=== PATIENT | male | born 1975 | race American Indian/Alaskan Native ===

== ENCOUNTER 2024-06-29 12:40 | Inpatient (IN) | payer BC, SELFPAY ==
[2024-06-29] VITALS (17 sets, daily range): BP systolic 99–139; BP diastolic 70–105; PULSE 90–158; RESP 15–20; TEMP 36.3–36.9; O2SAT 92–100; BMI 24.7
--- NOTE | 2024-06-29 12:51 | EKG_ITS ---
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
--- NOTE | 2024-06-29 12:54 | XR_ITS ---
Examination: AP chest single view Technique one AP portable semiupright chest single view Exam date and time: June 29, 2024 1316 hrs. Indications: Chest pain cardiac palpitations and shortness of breath today Findings: Normal heart size. Lungs are clear. Mild osteopenia Impression: No pneumonia or pulmonary edema
--- NOTE | 2024-06-29 12:55 | EDNOTE_ITS ---
ED SOB =RME/HPI General Chief Complaint: Shortness of Breath/Dyspnea Stated Complaint: SOB FOR A COUPLE OF MINUTES Time Seen by Provider: 06/29/24 12:48 Arrival date/time: 06/29/24 12:40 RME / HPI RME / HPI Narrative: 49-year-old male patient with no significant medical history, came in for evaluation regarding palpitation. Patient noticed about few minutes prior to ER visit sudden onset of shortness of breath, palpitation, and felt like her heart beat is irregular. Severity of symptoms moderate. Shortness of breath lasted for at least 10 minutes. However palpitation and irregular heartbeat is still persistent. Severity mild. Patient denies any dizziness denies any headache denies any abdominal pain denies any chest pain. No medication was taken prior to arrival. Patient told me that last night he ate marijuana edible to help him with sleep. Related Data Previous Rx's ?Medication ?Instructions ?Recorded Promethazine Hcl (Phenergan) 1 tab PO Q4-6HRPRN PRN NAUSEA OR 07/03/13 VOMITING #15 tabs Allergies Allergy/AdvReac Type Severity Reaction Status Date / Time Penicillins Allergy Verified 06/29/24 12:42 Review of Systems Review of Systems Narrative Review of Systems: Review of system reviewed and within normal limits except mentioned in HPI ED Exam Narrative Physical exam: VITAL SIGNS: Reviewed. GENERAL APPEARANCE: Alert and interactive, follows commands, no acute distress, HEAD AND FACE: Non-traumatic. ENT: PERRL, pink conjunctivitis, eyelid no trauma, Mucous membrane moist. NECK: Supple, nontender, no nuchal rigidity. CHEST: No tenderness, no crepitus, no paradoxical movement, no retractions. LUNGS: Clear, well ventilated, symmetric, no rales, no wheezing, no ronchi, no stridor, good breath sounds bilaterally. HEART: Tachycardia, no murmur, no gallops. ABDOMEN: Soft, positive bowel sounds, nondistended, no guarding, nontender, no rebound, no masses, RECTAL: Deferred. GENITAL: Deferred. NEUROLOGICAL: Gross motor function intact sensory function intact, Appropriate for age. MUSCULOSKELETAL: low back nontender, full range of motion. EXTREMITIES: Nontender, full range of motion. SKIN: Color pink, dry, no rash, no lacerations, no abrasions, no contusions. LYMPHATICS: Deferred. Course Quality Measures none Orders Category Date Time Status COVID-19 Screening Questionnaire NOW Care 06/29/24 14:12 Active Decision to Admit X1 Care 06/29/24 14:11 Active EKG (ED ONLY) *Do not use* NOW Care 06/29/24 12:51 Completed EKG (ED ONLY) *Do not use* NOW Care 06/29/24 14:12 Active Consult to Cardiology Stat Cons 06/29/24 13:45 Ordered EKG (ED Only) Stat Exams 06/29/24 12:51 Draft EKG (ED Only) Stat Exams 06/29/24 14:12 Ordered XR chest 1V Stat Exams 06/29/24 12:54 Taken B-Type Natriuretic Peptide Stat Lab 06/29/24 13:00 Completed CBC Stat Lab 06/29/24 13:00 Completed Comprehensive Metabolic Panel Stat Lab 06/29/24 13:00 Completed Drug Screen,Urine Stat Lab 06/29/24 14:00 Received Free T4 (Free Thyroxine) Stat Lab 06/29/24 13:00 Completed Magnesium Stat Lab 06/29/24 13:00 Completed Partial Thromboplastin Time Stat Lab 06/29/24 13:00 Completed Prothrombin Time with INR Stat Lab 06/29/24 13:00 Completed TSH [Thyroid Stimulating Hormone] Stat Lab 06/29/24 13:00 Completed Troponin I Stat Lab 06/29/24 13:00 Completed Urinalysis, C/S if Indicated Stat Lab 06/29/24 13:47 Received Amiodarone 150 mg Ivpb [Nexterone Ivpb] Med 06/29/24 13:15 Discontinued 150 mg in 100 ml IV 600 mls/hr Amiodarone 360 mg Ivpb [Nexterone Ivpb] Med 06/29/24 13:34 Active 360 mg in 200 ml IV 33.333 mls/hr Diltiazem Inj [Cardizem Inj] Med 06/29/24 13:44 Discontinued 20 mg IV X1 ONE Sodium Chloride 0.9% 1000 ml [Ns] 1,000 ml Med 06/29/24 13:15 Discontinued IV 999 mls/hr Vital Signs Vital signs: Vital Signs Temperature 98.1 F 06/29/24 12:52 Pulse Rate 142 H 06/29/24 12:52 Respiratory Rate 20 06/29/24 12:52 Blood Pressure 129/76 06/29/24 12:52 Pulse Oximetry (%) 98 06/29/24 12:52 Oxygen Delivery Method Room Air 06/29/24 12:52 Shortness of Breath / Dyspnea MDM Narrative MDM Narrative:: 49-year-old male patient with no significant medical history, came in for evaluation regarding palpitation. Patient noticed about few minutes prior to ER visit sudden onset of shortness of breath, palpitation, and felt like her heart beat is irregular. Severity of symptoms moderate. Shortness of breath lasted for at least 10 minutes. However palpitation and irregular heartbeat is still persistent. Severity mild. Patient denies any dizziness denies any headache de nies any abdominal pain denies any chest pain. No medication was taken prior to arrival. Patient told me that last night he ate marijuana edible to help him with sleep. Initial EKG showed A-fib with RVR, ventricular rate of 164 bpm. Patient was started on amiodarone IV bolus and on amiodarone drip. I consulted Dr. Garcia, superintendent warehouse, who recommends Cardizem 20 mg IV. Currently patient is having a heart rate of 93 bpm. Denies any complaints now. Repeat EKG showed A-fib, ventricular rate of [address] segment elevation or depression noted. Patient's cardiac workup all came back unremarkable. Patient will be admitted for further management. Patient data External records reviewed:: None Clinical information provided by:: patient Social determinants that could affect healthcare access:: none Patient has the following chronic illnesses:: None How is presenting disease/condition affected by chronic disease/condition?: no chronic disease Evaluation data The following diagnostics were reviewed and interpreted by me:: lab results, radiology exam(s) and EKG tracing(s) Lab and/or radiology exams considered but not ordered:: 1 Interpretation Summary: Patient's workup including cardiac workup, came back unremarkable except for EKG of A-fib with RVR ventricular rate of 164 bpm, no ST segment elevation depression noted. I personally reviewed and interpreted the x-ray of this patient. There is no acute abnormalities found, no infiltrates no pneumothorax no hemothorax normal chest x-ray. Review of other structures was without significant abnormal findings also. I additionally reviewed the radiologist report and agree with the interpretation. Medications / Prescriptions Medications or Prescriptions considered but not ordered:: None Medication administrations:: Medication Administration History Amiodarone HCl/Dextrose (Nexterone Ivpb) 360 mg in 200 mls @ 33.333 mls/hr IV .Q6H ONE Stop: 06/29/24 19:33 Last Admin: 06/29/24 13:36 Dose: 33.333 mls/hr Documented By: VANNA Discontinued Medications Diltiazem HCl (Diltiazem Inj 5 Mg/Ml Vial 5 Ml) 20 mg IV X1 ONE Stop: 06/29/24 13:45 Last Admin: 06/29/24 13:49 Dose: 20 mg Documented By: VANNA Amiodarone HCl/Dextrose (Nexterone Ivpb) 150 mg in 100 mls @ 600 mls/hr IV .Q10M ONE Stop: 06/29/24 13:24 Last Infusion: 06/29/24 13:40 Dose: Infused Documented By: Admin: 06/29/24 13:20 Dose: 600 mls/hr Documented By: VANNA Sodium Chloride (Ns) 1,000 mls @ 999 mls/hr IV .Q1H1M ONE Stop: 06/29/24 14:15 Last Admin: 06/29/24 13:24 Dose: 999 mls/hr Documented By: VANNA Amiodarone IV bolus and amiodarone drip. Patient was also given IV fluids for hydration and Cardizem 20 mg IV Consultations Consultation(s) initiated? (list below): Yes Consultation #1 (Physician, Specialty, Details): Consulted Dr. Garcia, superintendent warehouse, who recommends admission for further management. Diagnosis Shortness of Breath Differential Diagnosis: congestive heart failure and other (New onset A-fib with RVR, palpitation anxiety) Most likely diagnosis given after review of the tests above:: New onset A-fib with RVR Admission Indicated Admission indicated?: indicated Explain why admission is indicated or not indicated:: Patient is to be admitted for further management Admission Request Was there a request for admission?: Yes Admission Attestation Admission request attestation: Discussed case with [Dr. Gutierrez resident] from Hospitalist service regarding admission. Discussed patients ED course, exam findings, labs, and radiology results. The Hospitalist [agrees] to accept the patient for admission. Disposition Plan Disposition Plan: Admit Discharge Plan Prescriptions/Referrals Prescriptions/Med Rec: No Action Promethazine Hcl (Phenergan) 25 MG tablet 1 tab PO Q4-6HRPRN PRN (Reason: NAUSEA OR VOMITING) Qty: 15 0RF Patient/Caregiver Discharge Instructions Print Language: Chadian
[2024-06-29 13:07] LABS: Basophils # (Auto) 0.1 Thou/mm3 (0.0-0.2); Basophils % (Auto) 1 % (0-2.5); Eosinophils # (Auto) 0.1 Thou/mm3 (0.0-0.5); Eosinophils % (Auto) 2 % (0-10); Hematocrit 46.2 % (41.0-53.0); Hemoglobin 15.9 g/dL (13.5-16.0); Immature Granulocytes % (Auto) 0 % (0-0); Immature Granulocytes Auto 0.01 Thou/mm3 (0.00-0.00); Lymphocytes # (Auto) 3.3 Thou/mm3 (1.0-4.8); Lymphocytes % (Auto) 45 % (10-50); Mean Corpuscular HGB Conc 34.4 g/dl (31.0-37.0); Mean Corpuscular Hemoglobin 28.8 pg (25.0-35.0); Mean Corpuscular Volume 84 fL (80-100); Monocytes # (Auto) 0.7 Thou/mm3 (0.0-0.8); Monocytes % (Auto) 9 % (0-12); Neutrophils # (Auto) 3.2 Thou/mm3 (1.8-7.7); Neutrophils % (Auto) 43 % (37-80); Nucleated Red Blood Cell % 0 /100 WBC (0); Platelet Count 270 Thou/mm3 (140-440); RDW Standard Deviation 38.8 fL (35.1-43.9); Red Blood Count 5.53 Miln/mm3 (4.50-5.90); White Blood Count 7.4 Thou/mm3 (3.8-10.6)
[2024-06-29] MEDS: AMIODARONE 150 MG IVPB 150 MG/100 ML BAG 600 MG IV (13:20)
[2024-06-29 13:23] LABS: INR 1.1 (0.9-1.3); Partial Thromboplastin Time 31.5 Seconds (22.0-36.0); Prothrombin Time 11.9 Seconds (9.0-12.2)
[2024-06-29] MEDS: SODIUM CHLORIDE 0.9% 1000 ML 1,000 ML 999 ML IV (13:24)
[2024-06-29 13:25] LABS: B-Type Natriuretic Peptide < 20 pg/mL (0-100)
[2024-06-29 13:29] LABS: Alanine Aminotransferase 24 U/L (10-49); Albumin, Serum 4.4 gm/dL (3.5-5.0); Albumin/Globulin Ratio 1.8 (1.2-2.2); Alkaline Phosphatase 122 U/L (46-116); Anion Gap 6 (7-16); Aspartate Amino Transferase 29 U/L (0-34); BUN/Creatinine Ratio 19 Ratio (12-20); Bilirubin,Total 0.7 mg/dL (0.3-1.2); Blood Urea Nitrogen 17 mg/dL (9-23); Calcium 9.4 mg/dL (8.3-10.6); Calcium (Corrected) 9.4 mg/dL (8.5-10.1); Carbon Dioxide 27.9 mMol/L (20.0-31.0); Chloride 104 mMol/L (98-107); Creatinine (Component) 0.9 mg/dL (0.6-1.3); Estimated Creatinine Clearance 88.3 mL/min (>60); Free T4 (Free Thyroxine) 1.12 ng/dL (0.89-1.76); Globulin 2.5 gm/dL (2.3-3.5); Glucose 103 mg/dL (74-106); Magnesium 2.1 mg/dL (1.6-2.6); Osmolality,Calculated 277 (275-295); Potassium 4.4 mMol/L (3.4-5.1); Sodium 138 mMol/L (136-145); Thyroid Stimulating Hormone 0.57 uIU/mL (0.55-4.78); Total Protein 6.9 gm/dL (5.7-8.2); Troponin I < 0.020 ng/mL (0.0-0.045); eGFR > 60 See Note
[2024-06-29] MEDS: AMIODARONE 360 MG IVPB 360 MG/200 ML BAG 33.333 MG IV (13:36)
--- NOTE | 2024-06-29 13:45 | PC.NURSE ---
in to assess pt. pt from home with c/o palpitations, sob, and dizziness. per pt symptoms started 30 minutes prior to arrival, no longer short of breath or dizzy at this time. HR noted to be in the 150's-170's. provider in to assess. orders received and initiated. call light placed within reach. plan of care ongoing.
[2024-06-29] MEDS: DILTIAZEM INJ 5 MG/ML VIAL 5 ML 20 MG IV (13:49)
[2024-06-29 14:01] LABS: Collection Type, Urine Clean Catch; Squamous Epithelial Cell,Urine 0 /hpf (0-5)
--- NOTE | 2024-06-29 14:12 | EKG_ITS ---
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
[2024-06-29 14:19] LABS: Bilirubin,Urine Negative (Negative); Blood,Urine Negative (Negative); Clarity,Urine Clear (Clear/Hazy); Color,Urine Yellow (Lt Yel-Yel); Culture Indicated,Urine Not Indicated; Glucose, Urine Negative (Negative); Ketones,Urine Negative (Negative); Leukocyte Esterase,Urine Negative (Negative); Nitrite,Urine Negative (Negative); Protein,Urine Negative (Neg - Trace); RBC,Urine 2 /hpf (0-3); Specific Gravity,Urine 1.028 (1.001-1.035); Urobilinogen,Urine Negative mg/dL (0.0-1.0); WBC,Urine 1 /hpf (0-5)
[2024-06-29 14:34] LABS: Amphetamine/Methamp Scrn,U Negative (Negative); Barbiturate Screen,Urine Negative (Negative); Benzodiazepines Screen,Urine Negative (Negative); Benzoylecgonine Screen, Ur Negative (Negative); Fentanyl Screen,Urine Negative (Negative); Opiate Screen,Urine Negative (Negative); THC Screen,Urine Positive (Negative)
--- NOTE | 2024-06-29 15:00 | ESHP_ITS ---
Documentation for date of: 06/29/24 HPI History of Present Illness History of present illness: Gamaliel is a 49-year-old male with no past medical history who presents with sudden onset shortness of breath, palpitations, dizziness. Patient states that about 11 AM this morning he started to experience the symptoms and came to the ER immediately. He also reports a few episodes over the last few months of chest pain/palpitations that resolved within a few seconds. he denies any recent stress or changes in his life. He reports having marijuana edible last night to help him sleep. He has been using these for the last 3 years. He reports that he saw his PCP recently and that all of his labs look good. He is an active mehul and his work requires him to move and walk constantly. 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 Otherwise he has no other complaints. In the ED patient presented heart rate in the 150s 160s otherwise normal vitals. EKG showed A-fib with RVR. Labs were all within normal limits, TSH, mag, troponin, BNP all normal. Patient was placed on amiodarone drip. Dr. Garcia, wildlife control agent was was consulted and recommended Cardizem IV and admit for further workup. Pending UDS, A1c, echo Allergies: Penicillin, rash Family history: None Past surgical history: None Past medical history: None Social history: [place], alcohol occasionally last drink was a month ago, reports drank more heavily when he was younger, denies tobacco use, reports marijuana use but no other drug use Meds: None Review of Systems Review of Systems Systems Reviewed: All systems reviewed, normal except as documented Constitutional Constitutional: Denies fever(s) ENT Ears, Nose, Mouth, and Throat: Reports dizziness Cardiovascular Comments: Palpitations Gastrointestinal Gastrointestinal: Denies abdominal pain, Denies nausea and Denies vomiting Neurologic Neurologic: Reports dizziness Exam Vital Signs Temp Pulse Resp BP Pulse Ox O2 Del Method 98 F 97 19 101/80 95 Room Air 06/29/24 14:00 06/29/24 14:00 06/29/24 14:00 06/29/24 14:00 06/29/24 14:00 06/29/24 14:00 Narrative Exam General: Well appearing, well nourished, in no distress HEENT: Normocephalic, atraumatic, conjunctiva clear, sclera non-icteric, EOM intact Heart: Tachycardic and irregular rhythm, no murmur or gallop Lungs: Clear to auscultation, no wheezing Abdomen: Soft, nondistended none tender Extremities: No amputations or deformities, cyanosis, edema or varicosities, peripheral pulses intact Neurologic: Moves all extremity spontaneously, A and O x 3 Psychiatric: Cooperative, normal mood and affect. Results: Labs 06/30/24 04:45 06/30/24 04:45 Labs: Short CBC 06/29/24 Range/Units 13:00 WBC 7.4 (3.8-10.6) Thou/mm3 Hgb 15.9 (13.5-16.0) g/dL Hct 46.2 (41.0-53.0) % Plt Count 270 (140-440) Thou/mm3 BMP 06/29/24 13:00 Sodium 138 Potassium 4.4 Chloride 104 Carbon Dioxide 27.9 BUN 17 Creatinine 0.9 Glucose 103 Calcium 9.4 Cardiac Enzymes 06/29/24 Range/Units 13:00 Troponin I < 0.020 (0.0-0.045) ng/mL Liver Function 06/29/24 Range/Units 13:00 Total Bilirubin 0.7 (0.3-1.2) mg/dL AST 29 (0-34) U/L ALT 24 (10-49) U/L Alkaline Phosphatase 122 H (46-116) U/L Albumin 4.4 (3.5-5.0) gm/dL Urine 06/29/24 Range/Units 13:47 Urine Color Yellow (Lt Yel-Yel) Urine Clarity Clear (Clear/Hazy) Urine pH 6.0 (5.0-7.0) Ur Specific [place] 1.028 (1.001-1.035) Urine Protein Negative (Neg - Trace) Urine Glucose (UA) Negative (Negative) Quality Measures Quality Measures VTE prophylaxis Medications Home Medications and Allergies Home Medications ?Medication ?Instructions ?Recorded ?Confirmed ?Type No Known Home Medications 06/30/24 06/30/24 History Allergies Allergy/AdvReac Type Severity Reaction Status Date / Time Penicillins Allergy Verified 06/29/24 12:42 Visit Medications Acetaminophen (Acetaminophen 325 Mg Tablet) 650 mg PO Q6H PRN PRN Reason: Fever >100.3 or pain Stop: 07/29/24 14:39 Enoxaparin Sodium (Enoxaparin Sod Inj 40 Mg/0.4 Ml Syringe) 40 mg SC QDAY WALDO Stop: 07/14/24 08:59 Amiodarone HCl/Dextrose (Nexterone Ivpb) 360 mg in 200 mls @ 33.333 mls/hr IV .Q6H ONE Stop: 06/29/24 19:33 Last Admin: 06/29/24 13:36 Dose: 33.333 mls/hr Ondansetron HCl (Ondansetron Inj 2 Mg/Ml Inj 2 Ml) 4 mg IV Q6H PRN; Protocol PRN Reason: NAUSEA OR VOMITING Stop: 07/29/24 14:39 Discontinued Medications Diltiazem HCl (Diltiazem Inj 5 Mg/Ml Vial 5 Ml) 20 mg IV X1 ONE Stop: 06/29/24 13:45 Last Admin: 06/29/24 13:49 Dose: 20 mg Amiodarone HCl/Dextrose (Nexterone Ivpb) 150 mg in 100 mls @ 600 mls/hr IV .Q10M ONE Stop: 06/29/24 13:24 Last Infusion: 06/29/24 13:40 Dose: Infused Sodium Chloride (Ns) 1,000 mls @ 999 mls/hr IV .Q1H1M ONE Stop: 06/29/24 14:15 Last Admin: 06/29/24 13:24 Dose: 999 mls/hr Assessment & Plan Plan Gamaliel Meza 49-year-old male with no significant past medical history who presents with shortness of breath, palpitations, dizziness with new onset A-fib with RVR. Patient was started on amnio drip and given [address] Garcia, wildlife control agent was consulted. Patient will be admitted for further workup and management. #New onset A-fib with RVR #Tachycardia Patient presents with shortness of breath, palpitations EKG shows A-fib with RVR with heart rate in the 150s TSH electrolytes normal, UDS positive for marijuana, no caffeine use in last month, occasional alcohol use -Amiodarone drip -Metoprolol 25-tartrate p.o. twice daily -Echo pending -Cardiology consulted, appreciate recommendations #Marijuana use Patient reports using edible marijuana nightly for the past 3 years Positive marijuana on UDS -Education Health Maintenance: Disp: Telemetry FEN: Cardiac diet GI: Not indicated DVT: Lovenox 40 mg daily Lines: PIV Code: Full The patient's plan was discussed with attending Dr. Miller and senior resident Dr.Quresh Inocencio Randall, DO PGY1 Internal Medicine Senior resident attestation: Patient evaluated and examined at the bedside, plan of care discussed with rest of the team including my attending physician, except as noted. #A-fib with RVR Patient reported history of palpitations starting 1 month ago, but did not seek medical attention at that time, had palpitations with chest discomfort starting today and came into the emergency room, found to have A-fib with RVR, patient received IV diltiazem push, currently on IV amiodarone drip, cardiology is consulted, appreciate recommendations. Spoke to wildlife control agent Dr. Arianna Garcia, do not feel strongly about anticoagulation right now, currently on Lovenox for DVT prophylaxis, continue on amiodarone, and metoprolol tartrate 25 mg twice daily per cardiology recommendations. She Crystal PGY2 Attending Provider Attestation/Addendum I have examined the patient, reviewed labs and imaging findings, discussed the case with the resident(s), and reviewed entered orders. I agree with the plan of care as outlined in this note, with these additional summaries/recommendations: # Atrial fibrillation with rapid ventricular response Presented with new onset atrial fibrillation with rates into the 150s Unclear etiology as to why patient went into atrial fibrillation at this time [id number] score 0 points indicating Stroke risk was 0.2% per year in >90,000 patients We will defer therapeutic anticoagulation for now Workup: EKG as needed for chest pain, telemetry, troponins, BMP, mag, TSH, free T4, EtOH, U tox, echocardiogram Plan: Continue with rhythm control with amiodarone gtt. cardiology consulted. No need for anticoagulation at this time. Dr. Miller
[2024-06-29] MEDS: METOPROLOL TARTRATE 25 MG TABLET PO (20:55)
[2024-06-29] MEDS: AMIODARONE 360 MG IVPB 360 MG/200 ML BAG 16.667 MG IV (21:02)
[2024-06-30] VITALS (9 sets, daily range): BP systolic 114–158; BP diastolic 78–101; PULSE 66–109; RESP 13–20; TEMP 35.8–36.6; O2SAT 97–100; BMI 25.0
[2024-06-30 06:17] LABS: Basophils % (Auto) 1 % (0-2.5); Eosinophils # (Auto) 0.2 Thou/mm3 (0.0-0.5); Eosinophils % (Auto) 2 % (0-10); Hematocrit 44.9 % (41.0-53.0); Hemoglobin 15.3 g/dL (13.5-16.0); Immature Granulocytes % (Auto) 0 % (0-0); Immature Granulocytes Auto 0.02 Thou/mm3 (0.00-0.00); Lymphocytes # (Auto) 2.6 Thou/mm3 (1.0-4.8); Lymphocytes % (Auto) 30 % (10-50); Mean Corpuscular HGB Conc 34.1 g/dl (31.0-37.0); Mean Corpuscular Hemoglobin 29.2 pg (25.0-35.0); Mean Corpuscular Volume 86 fL (80-100); Monocytes # (Auto) 0.6 Thou/mm3 (0.0-0.8); Monocytes % (Auto) 7 % (0-12); Neutrophils # (Auto) 5.3 Thou/mm3 (1.8-7.7); Neutrophils % (Auto) 60 % (37-80); Nucleated Red Blood Cell % 0 /100 WBC (0); Platelet Count 241 Thou/mm3 (140-440); RDW Standard Deviation 40.2 fL (35.1-43.9); Red Blood Count 5.24 Miln/mm3 (4.50-5.90); White Blood Count 8.7 Thou/mm3 (3.8-10.6)
[2024-06-30 07:00] LABS: Anion Gap 5 (7-16); BUN/Creatinine Ratio 12 Ratio (12-20); Blood Urea Nitrogen 12 mg/dL (9-23); Chloride 104 mMol/L (98-107); Estimated Creatinine Clearance 79.4 mL/min (>60); Glucose 106 mg/dL (74-106); Osmolality,Calculated 277 (275-295); Phosphorous 3.5 mg/dL (2.4-5.1); Potassium 4.2 mMol/L (3.4-5.1); Sodium 139 mMol/L (136-145); eGFR > 60 See Note
[2024-06-30 07:34] LABS: Glucose Estimated Average 105 mg/dL (80-131); Hemoglobin A1C 5.3 % Hgb (4.8-6.0)
[2024-06-30] MEDS: ENOXAPARIN SOD INJ 40 MG/0.4 ML SYRINGE SC (08:37)
[2024-06-30] MEDS: METOPROLOL TARTRATE 25 MG TABLET PO ×2 (08:37→20:55)
[2024-06-30] MEDS: AMIODARONE 360 MG IVPB 360 MG/200 ML BAG 16.667 MG IV (08:38)
--- NOTE | 2024-06-30 10:29 | PC.SS ---
This is 49-year-old, , male who presented to the ED for shortness of breath. Patient appeared alert and oriented to self, place and situation. Patient was pleasant. Patient reported that he resides at home with his family: and children. Patient is independent with all ADLs, no DME use. Patient assigned his , Liv Sheets, as his primary medical decision maker. Patient's PCP is any physician at [facility]. When medically clear, patient will return home, no transportation is needed. Discharge Plan: home, no needs. Medical Decision Maker: Liv Sheets, .
--- NOTE | 2024-06-30 13:48 | ESCONSULT_ITS ---
RE: DIONNE HARTLEY : 1975 DATE OF CONSULTATION: 06/30/2024 CONSULTING PHYSICIAN: Hospitalist. REASON FOR CONSULTATION: Atrial fibrillation, new onset with rapid heart rate. HISTORY OF PRESENT ILLNESS: The patient is a 49-year-old male with no major medical problems. He works for [employer], normally drinks four cups of coffee, otherwise in good health, doing well until yesterday. He presented to the emergency room with severe palpitations and dizziness. The patient was having some shortness of breath as well. At 11 o'clock in the morning, he started having sudden shortness of breath with palpitations, some discomfort in the chest, but mostly palpitations. The patient does not smoke, but he has a history of marijuana edibles at times at night. He also drinks four to five cups of coffee almost all day. Fairly physically active. No other symptoms. Never had any cardiac problems or symptoms. No major medical problems. After admission, the patient was given IV amiodarone drip with bolus of diltiazem as well and now on amiodarone protocol along with metoprolol. Rate controlled fairly well, but remains in atrial fibrillation nearly 24 hours after starting amiodarone drip. Not having any other symptoms at this time. Rate is controlled well. ALLERGIES: PENICILLIN. MEDICATIONS: None. PAST MEDICAL HISTORY: None. SOCIAL HISTORY: The patient does smoke, does not drink alcoholic beverages, occasionally uses marijuana edibles, does drink four cups of coffee daily. FAMILY HISTORY: Noncontributory. REVIEW OF SYSTEMS: CARDIOVASCULAR: As discussed in the HPI. Rest of the review of systems negative. PHYSICAL EXAMINATION: GENERAL: Thin-built, well-nourished male, height 5 feet, weight 150 pounds. HEENT: Head is atraumatic and normocephalic. Eyes normal. ENT normal. NECK: No JVD. Carotid pulses felt. No bruit. CHEST: Symmetrical. LUNGS: Clear. HEART: S1, S2. Regular. No gallops or murmurs. ABDOMEN: Thin and soft. EXTREMITIES: No edema. GENITOURINARY AND RECTAL: Not performed. NEUROLOGIC: Normal. Alert and oriented x3. DIAGNOSTIC DATA: Electrocardiogram showed atrial fibrillation, rapid ventricular response, nonspecific ST changes. Laboratory data unremarkable. His lab data shows hemoglobin and hematocrit normal. Chemistry panel is normal. ASSESSMENT: Atrial fibrillation, rapid ventricular response, new onset. RECOMMENDATIONS: The patient will be recommended to continue amiodarone over three bags subsequently. May re-bolus him at 200 mg again. If he remains in atrial fibrillation overnight tomorrow, we will keep him in NPO for cardioversion. Since it is only less than 48 hours, it is safe to cardiovert him. We will give him Lovenox full dose for now, but he does not require any long-term anticoagulation. I would like to thank for referring this patient for cardiovascular evaluation. We will perform cardioversion tomorrow. We will review cardiac echo Doppler study tomorrow. DT: 12:28:11 TT: 13:47:00 Ref: [id number] - TID: [id number]
--- NOTE | 2024-06-30 14:47 | PD.RESPRO ---
Documentation for date of: 06/30/24 Subjective Subjective Interval history: Patient evaluated at the bedside, has no active complaints, rate controlled A-fib, currently on amiodarone drip. Simple questions and concerns were answered. Exam Vital Signs Temp Pulse Resp BP Pulse Ox O2 Del Method 96.4 F L 86 20 143/84 H 97 Room Air 06/30/24 12:00 06/30/24 12:00 06/30/24 12:00 06/30/24 12:00 06/30/24 12:00 06/30/24 12:00 Narrative Exam General: Well appearing, well nourished, in no distress HEENT: Normocephalic, atraumatic, conjunctiva clear, sclera non-icteric, EOM intact Heart: Tachycardic and irregular rhythm, no murmur or gallop Lungs: Clear to auscultation, no wheezing Abdomen: Soft, nondistended none tender Extremities: No amputations or deformities, cyanosis, edema or varicosities, peripheral pulses intact Neurologic: Moves all extremity spontaneously, A and O x 3 Psychiatric: Cooperative, normal mood and affect. Objective Labs 06/30/24 04:45 06/30/24 04:45 Labs: Laboratory Results - last 24 hr 06/30/24 04:45 WBC 8.7 RBC 5.24 Hgb 15.3 Hct 44.9 MCV 86 MCH 29.2 MCHC 34.1 RDW Std Deviation 40.2 Plt Count 241 Neut % (Auto) 60 Lymph % (Auto) 30 [place] % (Auto) 7 Eos % (Auto) 2 Baso % (Auto) 1 Neut # (Auto) 5.3 Lymph # (Auto) 2.6 [place] # (Auto) 0.6 Eos # (Auto) 0.2 Baso # (Auto) 0.0 Immature Gran # (Auto) 0.02 H Absolute Nucleated RBC 0.00 Immature Gran % 0 Nucleated RBC % 0 Sodium 139 Potassium 4.2 Chloride 104 Carbon Dioxide 30.0 Anion Gap 5 L BUN 12 Creatinine 1.0 Estim Creat Clear Calc 79.4 eGFR > 60 BUN/Creatinine Ratio [address] Glu mg/dL 105 Hemoglobin A1c 5.3 Calculated Osmolality 277 Calcium 9.0 Phosphorus 3.5 Magnesium 2.0 Quality Measures Quality Measures VTE prophylaxis Assessment & Plan Assessment Current Active Medications: Generic Name Dose Route Start Last Admin Trade Name Freq PRN Reason Stop Dose Admin Acetaminophen 650 mg 06/29/24 14:40 Acetaminophen 325 Mg Tablet PO 07/29/24 14:39 Q6H PRN Fever >100.3 or pain Enoxaparin Sodium 70 mg 06/30/24 21:00 Enoxaparin Sod Inj 80 Mg/0.8 Ml Syringe SC 07/14/24 20:59 BID WALDO Amiodarone HCl/Dextrose 360 mg in 200 mls @ 16.667 mls/hr 06/29/24 20:36 06/30/24 08:38 Nexterone Ivpb IV 06/30/24 20:35 16.667 mls/hr .Q12H WALDO Administration Metoprolol Tartrate 25 mg 06/29/24 21:00 06/30/24 08:37 Metoprolol Tartrate 25 Mg Tablet PO 07/29/24 20:59 25 mg BID WALDO Administration Ondansetron HCl 4 mg 06/29/24 14:40 Ondansetron Inj 2 Mg/Ml Inj 2 Ml IV 07/29/24 14:39 Q6H PRN NAUSEA OR VOMITING Protocol Plan Gamaliel Meza 49-year-old male with no significant past medical history who presents with shortness of breath, palpitations, dizziness with new onset A-fib with RVR. Patient was started on amio drip and given [address] Garcia, child development instructor was consulted. Patient will be admitted for further workup and management. #New onset A-fib with RVR #Tachycardia Patient presents with shortness of breath, , also reported history of palpitations starting 1 month ago, but did not seek medical attention at that time, had palpitations with chest discomfort starting today and came into the emergency room, found to have A-fib with RVR, patient received IV diltiazem push, currently on IV amiodarone drip, cardiology is consulted, appreciate recommendations. Spoke to child development instructor Dr. Arianna Garcia, do not feel strongly about anticoagulation right now, currently on Lovenox for DVT prophylaxis, continue on amiodarone, and metoprolol tartrate 25 mg twice daily per cardiology recommendations. [id number] score 0 points indicating Stroke risk was 0.2% per year in >90,000 patients EKG shows A-fib with RVR with heart rate in the 150s TSH electrolytes normal, UDS positive for marijuana, no caffeine use in last month, occasional alcohol use -Amiodarone drip, will continue p.o. amiodarone after amiodarone gtt -Metoprolol 25-tartrate p.o. twice daily -Echo pending -Cardiology consulted, appreciate recommendations #Marijuana use Patient reports using edible marijuana nightly for the past 3 years Positive marijuana on UDS -Education Health Maintenance: Disp: Telemetry FEN: Cardiac diet GI: Not indicated DVT: Lovenox 40 mg daily Lines: PIV Code: Full The patient's plan was discussed with attending Dr. Paul Rojas PGY2 Attending Provider Attestation/Addendum I have examined the patient, reviewed labs and imaging findings, discussed the case with the resident(s), and reviewed entered orders. I agree with the plan of care as outlined in this note, with these additional summaries/recommendations: # Atrial fibrillation with rapid ventricular response Presented with new onset atrial fibrillation with rates into the 150s Unclear etiology as to why patient went into atrial fibrillation. No evidence of thyroid disease or pulmonary embolism. Denies alcohol use. No evidence of infection. Denies substance use except for THC. Denies snoring while sleeping. Patient does drink approximately 4 cups of coffee a day. [id number] score 0 points indicating Stroke risk was 0.2% per year in >90,000 patients We will defer therapeutic anticoagulation for now Workup: EKG as needed for chest pain, telemetry, troponins, BMP, mag, TSH, free T4, EtOH, U tox, echocardiogram Plan: Echocardiogram pending to rule out structural etiology. Continue rhythm control with amiodarone gtt and started on rate control with metoprolol tartrate 25mg PO BID. Cardiology following. No need for anticoagulation at this time. Dr. Miller
--- NOTE | 2024-06-30 18:00 | EKG_ITS ---
[facility] Test Date: 2024-06-30 Pat Name: DIONNE HARTLEY [facility] Gender[facility] Male Stranner: ADARSH : 1975 Requested By: Antony Gallegos Order Number: [id number] Reading MD: Antony Gallegos Measurements Intervals [place] Rate: 72 P: 39 [place]: 142 QRS: 57 QRSD: 97 T: 43 QT: 399 QTc: 439 Interpretive Statements SINUS RHYTHM Compared to ECG 06/29/2024 14:32:18 Atrial fibrillation no longer present /store/S0/[id number]
[2024-06-30] MEDS: ENOXAPARIN SOD INJ 80 MG/0.8 ML SYRINGE 70 MG SC (20:58)
[2024-07-01] VITALS: BP 144/93; PULSE 76; PULSE 80; RESP 14; TEMP 36.7; O2SAT 100
[2024-07-01 04:00] VITALS: BP 139/87; PULSE 70; PULSE 79; RESP 13; TEMP 36.6; O2SAT 99
[2024-07-01 05:45] VITALS: BMI 25.5
[2024-07-01 06:17] LABS: Basophils # (Auto) 0.1 Thou/mm3 (0.0-0.2); Basophils % (Auto) 1 % (0-2.5); Eosinophils # (Auto) 0.2 Thou/mm3 (0.0-0.5); Eosinophils % (Auto) 2 % (0-10); Hematocrit 45.6 % (41.0-53.0); Hemoglobin 15.2 g/dL (13.5-16.0); Immature Granulocytes % (Auto) 0 % (0-0); Immature Granulocytes Auto 0.02 Thou/mm3 (0.00-0.00); Lymphocytes # (Auto) 2.5 Thou/mm3 (1.0-4.8); Lymphocytes % (Auto) 36 % (10-50); Mean Corpuscular HGB Conc 33.3 g/dl (31.0-37.0); Mean Corpuscular Hemoglobin 28.9 pg (25.0-35.0); Mean Corpuscular Volume 87 fL (80-100); Monocytes # (Auto) 0.6 Thou/mm3 (0.0-0.8); Monocytes % (Auto) 8 % (0-12); Neutrophils # (Auto) 3.7 Thou/mm3 (1.8-7.7); Neutrophils % (Auto) 53 % (37-80); Nucleated Red Blood Cell % 0 /100 WBC (0); Platelet Count 237 Thou/mm3 (140-440); RDW Standard Deviation 40.7 fL (35.1-43.9); Red Blood Count 5.26 Miln/mm3 (4.50-5.90); White Blood Count 6.9 Thou/mm3 (3.8-10.6)
[2024-07-01 06:38] LABS: Anion Gap 2 (7-16); BUN/Creatinine Ratio 17 Ratio (12-20); Blood Urea Nitrogen 17 mg/dL (9-23); Calcium 9.2 mg/dL (8.3-10.6); Chloride 104 mMol/L (98-107); Estimated Creatinine Clearance 79.4 mL/min (>60); Glucose 99 mg/dL (74-106); Osmolality,Calculated 275 (275-295); Phosphorous 3.4 mg/dL (2.4-5.1); Potassium 4.5 mMol/L (3.4-5.1); Sodium 137 mMol/L (136-145); eGFR > 60 See Note
[2024-07-01 08:00] VITALS: BP 124/87; PULSE 54; PULSE 68; RESP 18; TEMP 36.3; O2SAT 98
[2024-07-01 08:19] VITALS: BP 124/87; PULSE 56
[2024-07-01] MEDS: ENOXAPARIN SOD INJ 80 MG/0.8 ML SYRINGE 70 MG SC (08:27)
--- NOTE | 2024-07-01 09:54 | PC.SS ---
Follow up note: Echo and cardio recommendations pending.
[2024-07-01 12:00] VITALS: BP 136/79; PULSE 64; PULSE 72; RESP 18; TEMP 36.1; O2SAT 95
--- NOTE | 2024-07-01 12:44 | ESDS_ITS ---
<Statement entered by Ancelmo House MD - 07/01/24 15:35> A 49-year-old male patient with past medical history of marijuana abuse was admitted to the hospital on 29 June 2024 secondary to mild chest discomfort and pain associated with palpitation. Patient was noticed to have A-fib with RVR he was treated with amiodarone drip and also Lovenox therapeutic dose. Pat ient converted to normal sinus rhythm he was switched to metoprolol 25 mg/day however his heart rate went down to 55 bpm. For that reason the anesthesia assistant recommended to discharge the patient only on flecainide 50 mg twice daily and to perform echocardiogram in outpatient settings. Patient does not have any history of sleep apnea, or family history of sudden or heart disease. TSH was within normal limits, no hypoxia, and no stimulants were found on the drug test. 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 We encouraged the patient to cut down on the stimulants and also to practice sleep hygiene. Patient recommended to follow-up with his primary care physician and the anesthesia assistant Dr. Garcia upon discharge for further recommendations and for do an echocardiogram. - Patient's plan and care discussed with my attending, Dr. Gabriella House MD Internal Medicine PGY-2 Planned Discharge Date 07/01/24 DS: Providers Provider Date of admission: 06/29/24 15:09 Primary care physician: Physician No Primary/Family Admitting Provider: Ashutosh Miller MD Attending Provider on Admission: Ashutosh Miller MD Consults: 06/29/24 13:45 Consult to Cardiology Stat Comment: New onset A-fib with RVR Consulting Provider: Sandra Garcia Attending Provider on DC: Jose Luis Quiroz MD Discharging Provider: Jose Luis Quiroz MD DS: Diagnosis Problem List Completed Was Problem List Reviewed/Reconciled?: Yes Hospital Course Hospital Course Hospital course: Gamaliel is a 49-year-old male with no past medical history who was admitted on 06/29/2024 for new onset A-fib w/AVR. Pt had come to the ED for evaluation for CP and palpitations that had been ongoing for the past couple months. He came to the ER with HR 150-160s and otherwise unremarkable vitals. EKG was done and showed A-fib w/RVR. Labs were all within normal limits, TSH, mag, troponin, BNP all normal. Patient was placed on amiodarone drip. Dr. Garcia, anesthesia assistant was was consulted and recommended Cardizem IV and admit for further workup. Medicine was consulted and pt was admitted to the floors. While on the floors, pt was further worked up, A1c 5.3, urine drug screen showed THC. As pt was admitted, pt continued to have A-fib. Cardiology, Dr. Garcia, had seen the pt and recommended to consider cardioversion if pt continued to be in A-fib after the amio gtt was finished and was also put on Lovenox 70 mg BID. After amio was finished, pt had gone out of afib and was started on Metoprolol 25 mg BID. Cardiology had then recommeded for pt to follow up within one week and to do US outpatient and to be discharged on Flecanide 50 mg BID. At this time, etiology of new onset a-fib likely related to caffeine intake and sleep deprivation as patient is a auditor tax worker. Patient also recommended to cut down on caffeine intake. Pt counseled on cessation of marijuana use. Follow-up with your primary care physician within 1 week from discharge Follow-up with a anesthesia assistant within 1 week from discharge Use medications as prescribed Take Flecanide 50 mg twice a day, as prescribed Avoid using excessive stimulants such as coffee, energy drinks, and avoid sleep deprivation as these are can be a precipitating factors for your atrial fibrillation In case of worsening of your symptoms return to the ED as soon as possible #New onset A-fib with RVR #Tachycardia #Marijuana use Patient seen and care discussed with my senior resident, Dr. House , and my attending physician, Dr. Gabriella Block, PGY-1 Time Spent with Patient Time attestation: Total time spent providing and/or coordinating discharge services: Time spent: Greater than 30 minutes Exam Vital Signs Temp Pulse Resp BP Pulse Ox O2 Del Method 97.0 F 64 18 136/79 H 95 Room Air 07/01/24 12:00 07/01/24 12:00 07/01/24 12:00 07/01/24 12:00 07/01/24 12:00 07/01/24 12:00 Narrative Exam General: AAOx3, NAD, HEENT: Moist mucous membranes, conjunctiva clear, EOMI, PERRLA, Cardiovascular: S1, S2, radial pulses +2 bilat, RRR Pulmonary: CTAB bilat no cough, no wheezing GI: No tenderness to light or deep palpitation, no guarding, rigidity, rebound tenderness or distension Extremities: No presence of trace or pitting edema in lower extremities bilaterally, dorsalis pedis pulses +2 bilaterally Neuro: AAOx3, no focal motor or sensory deficits in the UE or LE bilat Psych: Good judgement, thought and behavior. Cooperative Discharge Plan Plan Patient Disposition: HOME (Self Care) Patient condition on transfer: Stable and Benefits outweigh risks Care Plan Goals: Follow-up with your primary care physician within 1 week from discharge Follow-up with a anesthesia assistant within 1 week from discharge Use medications as prescribed Avoid using excessive stimulants such as coffee, energy drinks, and avoid sleep deprivation as these are can be a precipitating factors for your atrial fibrillation In case of worsening of your symptoms return to the ED as soon as possible Prescriptions/Referrals Prescriptions/Med Rec: New flecainide 50 mg tablet 50 mg PO Q12H 30 Days Qty: 60 0RF Referrals: No Primary/Family,Physician [Primary Care Provider] - Patient/Caregiver Discharge Instructions Discharge Activity: activity as tolerated Education Materials: AFL/Afib, Discharge Instructions for ... Print Language: Malawian Stand Alone Forms: [employer] Award Info., Patient Portal Info Letter Discharge Order Discharge Orders: Discharge (Routine); Ordered 07/01/24 Ordered By: Ancelmo House Quality Discharge Quality Measures VTE prophylaxis (Lovenox ) Attestestation MD Attestation I reviewed labs, imaging, EKG, home medications and prior available records. Face to face evaluation was performed by me. I have personally examined the patient and discussed assessment and plan with the IM team. I reviewed the resident note and agree with the plan with exceptions as below. Tachyarrhythmia New onset A-fib with RVR Marijuana abuse Will discharge on p.o. flecainide No anticoagulation upon discharge Echocardiogram as outpatient Avoid marijuana use Limit caffeine use Outpatient follow-up with cardiology Time spent is 40 minutes. More than 50% of the time was spent on patient education and coordination of care.
[2024-07-01 14:20] VITALS: BP 124/77; PULSE 79; RESP 20; TEMP 36.2; O2SAT 94
--- NOTE | 2024-07-01 14:33 | ESPR_ITS ---
<Statement entered by Sandra Garcia MD - 07/03/24 19:10> The patient is evaluated by me personally examined the patient patient is back in normal sinus rhythm recommend to be discharged home to have outpatient workup with a cardiac echo agree with the treatment plan recommendation as documented by resident physician Dr. Crowley PGY2 Documentation for date of: 07/01/24 Subjective Subjective Interval history: 49-year-old male patient with no significant medical history was admitted for new onset of Afib with RVR. He works for [employer], normally drinks four cups of coffee, otherwise in good health, doing well until yesterday. He presented to the emergency room with severe palpitations and dizziness. The patient was having some shortness of breath as well. At 11 o'clock in the morning, he started having sudden shortness of breath with palpitations, some discomfort in the chest, but mostly palpitations. The patient does not smoke, but he has a history of marijuana edibles at times at night. He also drinks four to five cups of coffee almost all day. Fairly physically active. No other symptoms. Never had any cardiac problems or symptoms. No major medical problems. After admission, the patient was given IV amiodarone drip with bolus of diltiazem as well and now on amiodarone protocol along with metoprolol. Rate controlled fairly well, but remains in atrial fibrillation nearly 24 hours after starting amiodarone drip. Not having any other symptoms at this time. Rate is controlled well. 07/01/24: Patient completed amiodarone ggt, converted back to sinus. Vitals and labs were unremarkable and patient asymptomatic. Patient safe to be discharged on Flecainide 50 mg BID. We also recommend for patient to decrease coffee intake and stop marijuana use. No need for anicoagulation. Exam Vital Signs Temp Pulse Resp BP Pulse Ox O2 Del Method 97.0 F 64 18 136/79 H 95 Room Air 07/01/24 12:00 07/01/24 12:00 07/01/24 12:00 07/01/24 12:00 07/01/24 12:07/01/24 12:00 Narrative Exam Constitutional: well-developed, well-nourished, in no acute distress, lying in bed HEENT: NCAT, EOMI, reactive round pupils b/l, patent nares b/l, moist mucous membranes Lung: CTAB, no wheezing, no rhonchi Heart: Regular S1S2, no murmurs, gallops, or rubs Abdomen: Soft, non-distended, non-tender, bowel sounds present throughout Extremities: No cyanosis, clubbing, or edema, LE pulses present b/l Neurologic: No focal sensory or motor deficits noted, AOx3, appropriate affect Skin: Warm, dry, no lesions or rashes noted Objective Labs 07/01/24 05:33 07/01/24 05:33 Labs: Laboratory Results - last 24 hr 07/01/24 05:33 WBC 6.9 RBC 5.26 Hgb 15.2 Hct 45.6 MCV 87 MCH 28.9 MCHC 33.3 RDW Std Deviation 40.7 Plt Count 237 Neut % (Auto) 53 Lymph % (Auto) 36 [place] % (Auto) 8 Eos % (Auto) 2 Baso % (Auto) 1 Neut # (Auto) 3.7 Lymph # (Auto) 2.5 [place] # (Auto) 0.6 Eos # (Auto) 0.2 Baso # (Auto) 0.1 Immature Gran # (Auto) 0.02 H Absolute Nucleated RBC 0.00 Immature Gran % 0 Nucleated RBC % 0 Sodium 137 Potassium 4.5 Chloride 104 Carbon Dioxide 31.0 Anion Gap 2 L BUN 17 Creatinine 1.0 Estim Creat Clear Calc 79.4 eGFR > 60 BUN/Creatinine Ratio 17 Glucose 99 Calculated Osmolality 275 Calcium 9.2 Phosphorus 3.4 Magnesium 2.0 Quality Measures Quality Measures VTE prophylaxis (Lovenox ) Assessment & Plan Assessment Current Active Medications: Generic Name Dose Route Start Last Admin Trade Name Martir PRN Reason Stop Dose Admin Acetaminophen 650 mg 06/29/24 14:40 Acetaminophen 325 Mg Tablet PO 07/29/24 14:39 Q6H PRN Fever >100.3 or pain Enoxaparin Sodium 70 mg 06/30/24 21:00 07/01/24 08:27 Enoxaparin Sod Inj 80 Mg/0.8 Ml Syringe SC 07/14/24 20:59 70 mg BID WALDO Administration Metoprolol Tartrate 12.5 mg 07/01/24 21:00 Metoprolol Tartrate 25 Mg Tablet PO 07/31/24 20:59 BID WALDO Ondansetron HCl 4 mg 06/29/24 14:40 Ondansetron Inj 2 Mg/Ml Inj 2 Ml IV 07/29/24 14:39 Q6H PRN NAUSEA OR VOMITING Protocol Plan 49-year-old male with no significant medical history was admitted for symptomatic Afib with RVR. #New onset Afib with RVR On admission, patient with shortness of breath, palpitations EKG indicated Afib with RVR with heart rate in the 150s Toxicology positive for marijuana Plan: - Start Flecainide 50 mg BID - No need for anticoagulation - Echo pending #Marijuana use Plan: - Educated on abstinence from drug use This patient care was discussed with my attending Dr. Jose Zeng MD PGY-2 Disclaimer: Minor errors in apprentice/lineman may be present since this note was dictated by speech recognition software.
--- NOTE | 2024-07-01 15:11 | PC.NURSE ---
Called marcel Vicente to dicharge patient and patient will follow up outpatient for echo. Education given to patient about making follow up appointments with cardiology and when calling to also schedule echo. Patient verbalized understanding. Patients is at xray and wants to walk across street to meet her and she will drive him home. Dr. House notified and okay for patient to meet with her after discharge.
== END 2024-07-01 14:36 | disposition home or self-care (01) | DRG 310 ==
LOC: SERX 14:28 → SERHOLD 15:27 → S2NX 21:56
PROVIDERS: Nurse Practitioner Family; Admitting Provider Student in an Organized Health Care Education/Training Program; Emergency Provider Emergency Medicine; Visit Provider Student in an Organized Health Care Education/Training Program
DX: I48.91 Unspecified atrial fibrillation (principal); F12.10 Cannabis abuse, uncomplicated; F15.988 Other stimulant use, unspecified with other stimulant-induced disorder; Z72.820 Sleep deprivation; Z79.899 Other long term (current) drug therapy
CPT/HCPCS: 36415; 71045; 80048; 80053; 80307; 81001; 83036; 83735; 83880; 84100; 84439; 84443; 84484; 85025; 85610; 85730; 87811; 93005; 96365; 96366; 96367; 99285; J0283; J1650; J3490; J7030; A9270

== ENCOUNTER 2024-07-05 21:29 | Emergency (ER) | payer BC, SELFPAY ==
[2024-07-05 21:31] VITALS: BMI 24.7
--- NOTE | 2024-07-05 21:33 | EKG_ITS ---
[facility] Test Date: 2024-07-05 Pat Name: DIONNE HARTLEY Department: Room: - Gender: Male Director [employer]: : 1975 Requested By: ED Temporary Provider Order Number: [id number] Reading MD: ED Temporary Provider Measurements Intervals [place] Rate: 72 P: 61 [place]: 135 QRS: 73 QRSD: 112 T: 58 QT: 382 QTc: 418 Interpretive Statements SINUS RHYTHM MODERATE INTRAVENTRICULAR CONDUCTION DELAY [110+ ms QRS DURATION] Compared to ECG 06/30/2024 18:21:50 Intraventricular conduction delay now present /store/S0/[id number]
[2024-07-05 21:59] VITALS: BP 129/86; PULSE 78; RESP 18; TEMP 37.1; O2SAT 97
--- NOTE | 2024-07-05 22:12 | XR_ITS ---
Examination: PA chest single view Technique: Upright PA chest single view Exam date and time: July 05, 2024 10:19 PM Indications: Chest pain shortness of breath today. Findings: Normal heart size Lungs are clear. The osseous structures are intact Impression: No active disease
--- NOTE | 2024-07-05 22:12 | PD.EDRME ---
Rapid Medical Screening Exam E Arrival date/time: 07/05/24 21:29 49M with history of marijuana use and recently diagnosed afib after DC here presents to ED with 1 day of CP, SOB, and dizziness. Patient has been taking his flecainide. Chief Complaint: General Adult/Misc Complain Vital signs: Vital Signs Temperature 98.7 F 07/05/24 21:59 Pulse Rate 78 07/05/24 21:59 Respiratory Rate 18 07/05/24 21:59 Blood Pressure 129/86 H 07/05/24 21:59 Pulse Oximetry (%) 97 07/05/24 21:59 Oxygen Delivery Method Room Air 07/05/24 21:59
[2024-07-05 23:03] LABS: B-Type Natriuretic Peptide < 20 pg/mL (0-100)
[2024-07-05 23:05] LABS: Basophils # (Auto) 0.1 Thou/mm3 (0.0-0.2); Basophils % (Auto) 1 % (0-2.5); Eosinophils # (Auto) 0.1 Thou/mm3 (0.0-0.5); Eosinophils % (Auto) 2 % (0-10); Hematocrit 45.9 % (41.0-53.0); Hemoglobin 15.8 g/dL (13.5-16.0); Immature Granulocytes % (Auto) 1 % (0-0); Immature Granulocytes Auto 0.04 Thou/mm3 (0.00-0.00); Lymphocytes % (Auto) 29 % (10-50); Mean Corpuscular HGB Conc 34.4 g/dl (31.0-37.0); Mean Corpuscular Hemoglobin 29.3 pg (25.0-35.0); Mean Corpuscular Volume 85 fL (80-100); Monocytes # (Auto) 0.7 Thou/mm3 (0.0-0.8); Monocytes % (Auto) 9 % (0-12); Neutrophils # (Auto) 4.1 Thou/mm3 (1.8-7.7); Neutrophils % (Auto) 59 % (37-80); Nucleated Red Blood Cell % 0 /100 WBC (0); Platelet Count 235 Thou/mm3 (140-440); RDW Standard Deviation 39.1 fL (35.1-43.9); Red Blood Count 5.39 Miln/mm3 (4.50-5.90); White Blood Count 7.1 Thou/mm3 (3.8-10.6)
[2024-07-05 23:06] LABS: Alanine Aminotransferase 60 U/L (10-49); Albumin, Serum 4.7 gm/dL (3.5-5.0); Albumin/Globulin Ratio 1.7 (1.2-2.2); Alkaline Phosphatase 143 U/L (46-116); Anion Gap 7 (7-16); Aspartate Amino Transferase 32 U/L (0-34); BUN/Creatinine Ratio 17 Ratio (12-20); Bilirubin,Total 0.3 mg/dL (0.3-1.2); Blood Urea Nitrogen 17 mg/dL (9-23); Calcium 10.2 mg/dL (8.3-10.6); Calcium (Corrected) 10.2 mg/dL (8.5-10.1); Carbon Dioxide 31.4 mMol/L (20.0-31.0); Chloride 101 mMol/L (98-107); Estimated Creatinine Clearance 79.4 mL/min (>60); Globulin 2.7 gm/dL (2.3-3.5); Glucose 107 mg/dL (74-106); Magnesium 2.2 mg/dL (1.6-2.6); Osmolality,Calculated 279 (275-295); Potassium 4.2 mMol/L (3.4-5.1); Sodium 139 mMol/L (136-145); Total Protein 7.4 gm/dL (5.7-8.2); Troponin I < 0.002 ng/mL (0.0-0.045); eGFR > 60 See Note
[2024-07-05 23:54] VITALS: BP 170/99; PULSE 73; RESP 17; O2SAT 97
[2024-07-05 23:57] VITALS: BP 137/100; PULSE 66; RESP 16; TEMP 36.9; O2SAT 97
--- NOTE | 2024-07-05 23:59 | PD.EDADULT ---
ED General RME/HPI General Chief complaint: General Adult/Misc Complain Stated complaint: CHEST PAIN,SOB,DIZZINESS,BLURRED VISION Time Seen by Provider: 07/05/24 22:23 Arrival date/time: 07/05/24 21:29 RME / HPI RME / HPI narrative: 07/05/24 21:29 49M with history of marijuana use and recently diagnosed afib after DC here presents to ED with 1 day of CP, SOB, and dizziness. Patient has been taking his flecainide. ----- Dr. Valentin?s Main ED Evaluation: 49yo male with recently diagnosed aFib presents to the ED for complaints of chest pressure, blurry vision, generalized weakness, and sweating x 1 day. Patient states he was discharged home with Flecainide 50mg BID after his recent admission, and was advised to come in for evaluation if he started experiencing any side effects. Patient states he started having the above symptoms and was concerned, so he came in for evaluation. He denies any fever, chills, shortness of breath or any other associated symptoms. Related Data Previous Rx's ?Medication ?Instructions ?Recorded flecainide 50 mg tablet 50 mg PO Q12H 1 month #60 tabs 07/01/24 Allergies Allergy/AdvReac Type Severity Reaction Status Date / Time Penicillins Allergy Verified 06/29/24 12:42 Review of Systems Review of Systems Systems Reviewed: All systems reviewed, normal except as documented Narrative Review of Systems: Gen: No fever, no chills, no weight loss, + sweating EYES: No discharge, + visual changes, no pain HEENT: No ear pain, no congestion, no sore throat PULM: No shortness of breath, no cough, no congestion CV: + chest pain, no dyspnea on exertion, no palpitations GI: No nausea, no vomiting, no diarrhea, no pain, no constipation : No frequency, no urgency, no dysuria Musc/skel: No joint pain, no back pain Skin: No rash. Warm and dry. Psyc: No hallucinations, no depression Heme/Lymph: No easy bleeding or bruising tendencies Neuro: + weakness, no headache, + dizziness Past Medical History Past Medical History CARDIAC: Negative Congestive Heart Failure RESPIRATORY: Negative Chronic Obstructive Pulmonary Disease (COPD) GENITOURINARY: Negative Renal Disease ENDOCRINE: Negative Diabetes Mellitus Type 1 or Diabetes Mellitus Type 2 Social History SMOKING STATUS: Never smoker ED Exam Narrative Physical exam: GENERAL APPEARANCE: alert and oriented x 4, well-developed, well-nourished, no acute distress VITALS: All vitals were reviewed and the pulse ox is 97% on room air, which is normal according to my interpretation. HEENT: Normocephalic, atraumatic; pupils equal, round, reactive to light; EOMI; mucous membranes pink, moist; oropharynx clear NECK: Supple LUNGS: CTABL; no wheezes, no rales, no rhonchi HEART: Regular rate, regular rhythm; normal S1, S2; no murmurs ABDOMEN: non distended; normal BS; soft, no tenderness, no guarding, no rebound; no masses, no organomegaly, no hernia BACK: no CVA tenderness EXTREMITIES: atraumatic; no edema NEUROLOGIC: awake; alert and oriented x4; cranial nerves II-XII grossly intact; no focal sensory or motor deficits PSYCHIATRIC: anxious mood and affect SKIN: warm, dry, normal color; no rashes Course Course Course Narrative: CXR is ordered for determining the etiology of chest pain. Quality Measures none Orders Category Date Time Status EKG (ED ONLY) *Do not use* NOW Care 07/05/24 21:33 Completed EKG (ED Only) Stat Exams 07/05/24 21:33 Ordered XR chest 1V portable Stat Exams 07/05/24 22:12 Completed B-Type Natriuretic Peptide Stat Lab 07/05/24 22:32 Completed CBC Stat Lab 07/05/24 22:32 Completed Comprehensive Metabolic Panel Stat Lab 07/05/24 22:32 Completed Magnesium Stat Lab 07/05/24 22:32 Completed Troponin I Stat Lab 07/05/24 22:32 Completed LORazepam [Ativan Inj] Med 07/06/24 00:28 Discontinued 1 mg IVP X1 ONE Vital Signs Vital signs: Vital Signs Temperature 98.7 F 07/05/24 21:59 Pulse Rate 78 07/05/24 21:59 Respiratory Rate 18 07/05/24 21:59 Blood Pressure 129/86 H 07/05/24 21:59 Pulse Oximetry (%) 97 07/05/24 21:59 Oxygen Delivery Method Room Air 07/05/24 21:59 [facility] Patient data External records reviewed:: [facility] previous records (Per chart review, patient was admitted here on 06/29/24 for unspecified aFib.) Clinical information provided by:: patient Social determinants that could affect healthcare access:: none Patient has the following chronic illnesses:: aFib How is presenting disease/condition affected by chronic disease/condition?: uneffected by Evaluation data The following diagnostics were reviewed and interpreted by me:: lab results, radiology exam(s) and EKG tracing(s) Lab and/or radiology exams considered but not ordered:: none Interpretation Summary: CBC is normal, CMP is normal, Troponin is normal, BNP is normal, according to my interpretation. EKG done at 2203, NSR, rate of 72, normal axis, no ectopy, QRS: 112, QTc: 405, no acute ischemia, according to my interpretation. ------ [facility] Report Signed Patient: DIONNE HARTLEY Record#: [id number] Birthdate: 1975 Age/Sex: 49 / M Location: [facility] Attending Dr: Ordering Physician: Fredrick Davalos PA-C Date of Service: 07/05/24 Procedure(s): XR chest 1V portable Accession Number(s): [id number] cc: Thai Kumar MD; Deven Jung MD; Fredrick Davalos PA-C~ Examination: PA chest single view Technique: Upright PA chest single view Exam date and time: July 05, 2024 10:19 PM Indications: Chest pain shortness of breath today. Findings: Normal heart size Lungs are clear. The osseous structures are intact Impression: No active disease Dictated By: Thai Kumar MD Signed By: <Electronically signed by Thai Kumar MD in OV> 07/05/24 0135 Medications Medications considered but not ordered:: none Medication administrations:: Medication Administration History Discontinued Medications Lorazepam (Lorazepam 2 Mg/Ml Vial) 1 mg IVP X1 ONE Stop: 07/06/24 00:29 Last Admin: 07/06/24 00:34 Dose: 1 mg Documented By: SF see above Consultations Consultation(s) initiated? (list below): No Diagnosis Differential Diagnosis ED Complaint MDM: rapid aFib, SVT, angina, PE, pneumothorax, medication side effect, other Most likely diagnosis given after review of the tests above:: see below Admission Indicated Admission indicated?: not indicated Explain why admission is indicated or not indicated:: Admission criteria not met. Admission Request Was there a request for admission?: No Disposition Plan Disposition Plan: Discharge Discharge Attestation Discharge Attestation: The patient and all family members were given an opportunity to ask questions and understood the discharge instructions. Discharge instructions specifically effects, indications for sooner follow up or return to the emergency department, and the expected course of current diagnosis. Patient condition: Stable Medical Decision Making MDM Narrative MDM Narrative: Scribe Attestation: 07/06/24 - Laurie Sands am scribing for and in the presence of Dr. Valentin. Differential Diagnosis Differential Diagnosis: rapid aFib, SVT, angina, PE, pneumothorax, medication side effect, other Lab Data 07/05/24 22:32 07/05/24 22:32 Labs: Lab Results 07/05/24 Range/Units 22:32 WBC 7.1 (3.8-10.6) Thou/mm3 RBC 5.39 (4.50-5.90) Miln/mm3 Hgb 15.8 (13.5-16.0) g/dL Hct 45.9 (41.0-53.0) % MCV 85 (80-100) fL MCH 29.3 (25.0-35.0) pg MCHC 34.4 (31.0-37.0) g/dl RDW Std Deviation 39.1 (35.1-43.9) fL Plt Count 235 (140-440) Thou/mm3 Neut % (Auto) 59 (37-80) % Lymph % (Auto) 29 (10-50) % [place] % (Auto) 9 (0-12) % Eos % (Auto) 2 (0-10) % Baso % (Auto) 1 (0-2.5) % Neut # (Auto) 4.1 (1.8-7.7) Thou/mm3 Lymph # (Auto) 2.0 (1.0-4.8) Thou/mm3 [place] # (Auto) 0.7 (0.0-0.8) Thou/mm3 Eos # (Auto) 0.1 (0.0-0.5) Thou/mm3 Baso # (Auto) 0.1 (0.0-0.2) Thou/mm3 Immature Gran # (Auto) 0.04 H (0.00-0.00) Thou/mm3 Absolute Nucleated RBC 0.00 (0.00-0.00) Thou/mm3 Immature Gran % 1 H (0-0) % Nucleated RBC % 0 (0) /100 WBC Sodium 139 (136-145) mMol/L Potassium 4.2 (3.4-5.1) mMol/L Chloride 101 (98-107) mMol/L Carbon Dioxide 31.4 H (20.0-31.0) mMol/L Anion Gap 7 (7-16) BUN 17 (9-23) mg/dL Creatinine 1.0 (0.6-1.3) mg/dL Estim Creat Clear Calc 79.4 (>60) mL/min eGFR > 60 (60 - ) See Note BUN/Creatinine Ratio 17 (12-20) Ratio Glucose 107 H (74-106) mg/dL Calculated Osmolality 279 (275-295) Calcium 10.2 (8.3-10.6) mg/dL Corrected Calcium 10.2 H (8.5-10.1) mg/dL Magnesium 2.2 (1.6-2.6) mg/dL Total Bilirubin 0.3 (0.3-1.2) mg/dL AST 32 (0-34) U/L ALT 60 H (10-49) U/L Alkaline Phosphatase 143 H (46-116) U/L Troponin I < 0.002 (0.0-0.045) ng/mL B-Natriuretic Peptide < 20 (0-100) pg/mL Total Protein 7.4 (5.7-8.2) gm/dL Albumin 4.7 (3.5-5.0) gm/dL Globulin 2.7 (2.3-3.5) gm/dL Albumin/Globulin Ratio 1.7 (1.2-2.2) Discharge Plan Plan Patient Disposition: HOME (Self Care) Disposition Comment: Stable for discharge Patient condition on transfer: Stable Prescriptions/Referrals Prescriptions/Med Rec: No Action flecainide 50 mg tablet 50 mg PO Q12H 30 Days Qty: 60 0RF Referrals: Deven Jung([facility])MD [Primary Care Provider] - In 1 week Problem List Clinical Impression: Anxiety reaction Patient/Caregiver Discharge Instructions Discharge Activity: activity as tolerated Education Materials: Anxiety Disorders Tx Therapy, Understanding Anxiety Disorders, Treating Anxiety Disorders ..., ED Anxiety Reaction Additional Instructions: Please return to the emergency department if you have any worsening or any further medical problems Otherwise you should follow-up with your primary care doctor within the next several days Print Language: South Korean Stand Alone Forms: [facility] Award Info., Patient Portal Info Letter
[2024-07-06] VITALS: BP 151/83; PULSE 80; RESP 21; O2SAT 97
[2024-07-06] MEDS: LORazepam 2 MG/ML VIAL 1 MG IVP (00:34)
== END 2024-07-06 01:04 | disposition home or self-care (01) ==
PROVIDERS: Physician Assistant; Emergency Provider Emergency Medicine; PCP Family Medicine
DX: F41.1 Generalized anxiety disorder (principal); R07.9 Chest pain, unspecified; R06.02 Shortness of breath; I45.89 Other specified conduction disorders; I48.91 Unspecified atrial fibrillation
CPT/HCPCS: 36415; 71045; 80053; 83735; 83880; 84484; 85025; 93005; 99284; J2060

== ENCOUNTER 2024-07-12 10:15 | Emergency (ER) | payer BC, SELFPAY ==
--- NOTE | 2024-07-12 10:24 | EKG_ITS ---
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
--- NOTE | 2024-07-12 10:24 | XR_ITS ---
Examination: PA lateral chest 2 views TECHNIQUE: Upright PA lateral chest 2 views Exam date and time: July 12, 2024 and 39 hours Comparison 02/03/2024 INDICATIONS: Irregular heart rate with shortness of breast pain numbness and weakness today FINDINGS: Normal heart size No pneumonia or pulmonary edema The osseous structures are intact IMPRESSION: No pneumonia or heart failure
--- NOTE | 2024-07-12 10:25 | PD.EDRME ---
Rapid Medical Screening Exam RME Arrival date/time: 07/12/24 10:15 49-year-old male with no known medical history presents to the emergency room with a chief complaint of left lower 7 out of 10 sternal chest pain, palpitations x 4 days. I have greeted and performed a focused initial assessment of this patient. A comprehensive ED assessment and evaluation of the patient, analysis of all test results, and completion of the medical decision making process will be conducted by additional ED providers. Chief Complaint: General Adult/Misc Complain Vital signs reviewed by provider: Yes
[2024-07-12 10:31] VITALS: BP 164/85; PULSE 76; RESP 18; TEMP 36.9; O2SAT 98; BMI 24.4
[2024-07-12 11:38] LABS: Basophils # (Auto) 0.1 Thou/mm3 (0.0-0.2); Basophils % (Auto) 1 % (0-2.5); Eosinophils # (Auto) 0.1 Thou/mm3 (0.0-0.5); Eosinophils % (Auto) 1 % (0-10); Hematocrit 47.2 % (41.0-53.0); Hemoglobin 16.1 g/dL (13.5-16.0); Immature Granulocytes % (Auto) 0 % (0-0); Immature Granulocytes Auto 0.02 Thou/mm3 (0.00-0.00); Lymphocytes # (Auto) 1.9 Thou/mm3 (1.0-4.8); Lymphocytes % (Auto) 33 % (10-50); Mean Corpuscular HGB Conc 34.1 g/dl (31.0-37.0); Mean Corpuscular Hemoglobin 28.9 pg (25.0-35.0); Mean Corpuscular Volume 85 fL (80-100); Monocytes # (Auto) 0.5 Thou/mm3 (0.0-0.8); Monocytes % (Auto) 8 % (0-12); Neutrophils # (Auto) 3.2 Thou/mm3 (1.8-7.7); Neutrophils % (Auto) 56 % (37-80); Nucleated Red Blood Cell % 0 /100 WBC (0); Platelet Count 305 Thou/mm3 (140-440); Red Blood Count 5.57 Miln/mm3 (4.50-5.90); White Blood Count 5.7 Thou/mm3 (3.8-10.6)
[2024-07-12 11:59] LABS: INR 1.1 (0.9-1.3); Partial Thromboplastin Time 30.9 Seconds (22.0-36.0); Prothrombin Time 11.9 Seconds (9.0-12.2)
[2024-07-12 12:04] LABS: B-Type Natriuretic Peptide < 20 pg/mL (0-100)
[2024-07-12 12:06] LABS: Collection Type, Urine Clean Catch
[2024-07-12 12:13] LABS: Alanine Aminotransferase 23 U/L (10-49); Albumin, Serum 4.6 gm/dL (3.5-5.0); Albumin/Globulin Ratio 1.8 (1.2-2.2); Alkaline Phosphatase 118 U/L (46-116); Anion Gap 7 (7-16); Aspartate Amino Transferase 20 U/L (0-34); BUN/Creatinine Ratio 14 Ratio (12-20); Bilirubin,Total 0.6 mg/dL (0.3-1.2); Blood Urea Nitrogen 15 mg/dL (9-23); Calcium 9.5 mg/dL (8.3-10.6); Calcium (Corrected) 9.5 mg/dL (8.5-10.1); Carbon Dioxide 29.7 mMol/L (20.0-31.0); Chloride 102 mMol/L (98-107); Creatinine (Component) 1.1 mg/dL (0.6-1.3); Estimated Creatinine Clearance 72.2 mL/min (>60); Globulin 2.6 gm/dL (2.3-3.5); Glucose 85 mg/dL (74-106); Magnesium 2.2 mg/dL (1.6-2.6); Osmolality,Calculated 277 (275-295); Potassium 4.5 mMol/L (3.4-5.1); Sodium 139 mMol/L (136-145); Total Protein 7.2 gm/dL (5.7-8.2); Troponin I < 0.002 ng/mL (0.0-0.045); eGFR > 60 See Note
[2024-07-12 12:25] LABS: Bacteria,Urine Rare; Bilirubin,Urine Negative (Negative); Blood,Urine Negative (Negative); Clarity,Urine Clear (Clear/Hazy); Color,Urine Lt-Yellow (Lt Yel-Yel); Glucose, Urine Negative (Negative); Ketones,Urine Negative (Negative); Leukocyte Esterase,Urine Negative (Negative); Nitrite,Urine Negative (Negative); PH,Urine 5.5 (5.0-7.0); Protein,Urine Negative (Neg - Trace); RBC,Urine 1 /hpf (0-3); Specific Gravity,Urine 1.023 (1.001-1.035); Squamous Epithelial Cell,Urine < 1 /hpf (0-5); Urobilinogen,Urine Negative mg/dL (0.0-1.0); WBC,Urine 1 /hpf (0-5)
[2024-07-12 12:38] LABS: Amphetamine/Methamp Scrn,U Negative (Negative); Barbiturate Screen,Urine Negative (Negative); Benzodiazepines Screen,Urine Negative (Negative); Benzoylecgonine Screen, Ur Negative (Negative); Fentanyl Screen,Urine Negative (Negative); Opiate Screen,Urine Negative (Negative); THC Screen,Urine Negative (Negative)
[2024-07-12 12:45] VITALS: BP 144/70; PULSE 66; RESP 18; TEMP 36.7; O2SAT 99
[2024-07-12 15:18] VITALS: BP 148/92; PULSE 71; RESP 16; TEMP 36.9; O2SAT 99
[2024-07-12 16:44] VITALS: BP 159/94; PULSE 71; RESP 16; TEMP 36.7; O2SAT 99
--- NOTE | 2024-07-12 17:22 | EDNOTE_ITS ---
<Statement entered by Haydee Sánchez MD - 07/18/24 16:22> As co-signing physician, I was present and available for consult prn. I concur with the plan and care as documented by the midlevel provider. ED General RME/HPI General Chief complaint: General Adult/Misc Complain Stated complaint: WEAKNESS WITH IRREGULAR HEART RATE Time Seen by Provider: 07/12/24 17:13 Arrival date/time: 07/12/24 10:15 CC: Chest pain palpitations HPI ongoing for the past 4 days, the patient states he had significant concerns after being discharged from this hospital of A-fib, his stopped taking his flecainide approximately a week ago and has had no symptoms other than those described below. Patient denies any fever shortness of breath difficulty breathing patient is quite anxious regarding his heart . RME / HPI RME / HPI narrative: 07/12/24 10:15 49-year-old male with no known medical history presents to the emergency room with a chief complaint of left lower 7 out of 10 sternal chest pain, palpitations x 4 days. I have greeted and performed a focused initial assessment of this patient. A comprehensive ED assessment and evaluation of the patient, analysis of all test results, and completion of the medical decision making process will be conducted by additional ED providers. Related Data Previous Rx's ?Medication ?Instructions ?Recorded flecainide 50 mg tablet 50 mg PO Q12H 1 month #60 tabs 07/01/24 Allergies Allergy/AdvReac Type Severity Reaction Status Date / Time Penicillins Allergy Verified 07/12/24 10:18 Review of Systems Review of Systems Narrative Review of Systems: GEN: No fever, no chills, no weight loss EYES: No discharge, no visual changes, no pain HEENT: No ear pain, no congestion, no sore throat PULM: No shortness of breath, no cough, no congestion CV: + chest pain, no dyspnea on exertion, no palpitations GI: No nausea, no vomiting, no diarrhea, no pain, no constipation : No frequency, no urgency, no dysuria MUSC/SKEL: No joint pain, no back pain SKIN: No rash PSYCH: No hallucinations, no depression HEME/LYMPH: No easy bleeding or bruising tendencies NEURO: No weakness, no headache Past Medical History Past Medical History CARDIAC: Negative Congestive Heart Failure RESPIRATORY: Negative Chronic Obstructive Pulmonary Disease (COPD) GENITOURINARY: Negative Renal Disease ENDOCRINE: Negative Diabetes Mellitus Type 1 or Diabetes Mellitus Type 2 Social History SMOKING STATUS: Never smoker ED Exam Narrative Physical exam: [General: Anxious but not in any acute distress Head normocephalic HEENT: Within acceptable limits Neck is supple nontender Chest equal chest rise nontender to palpation Respiratory: Clear to auscultation no wheezes crackles or rubs CV: Rate rhythm is regular no murmurs rubs or clicks Abdomen is soft nontender no masses positive bowel sounds all 4 quadrants Back: No CVA tenderness no spinous process tenderness from cervical spine thoracic and lumbar spine Skin: Intact no petechiae rash induration ulceration or crepitus Extremities: Moving all extremity against resistance cap refill less than 2 seconds neurosensory intact Neuro: Awake alert oriented x3 Glascow coma 15 no focal deficits] Course Quality Measures none Orders Category Date Time Status EKG (ED ONLY) *Do not use* NOW Care 07/12/24 10:24 Completed EKG (ED Only) Stat Exams 07/12/24 10:24 Draft XR chest 2V Stat Exams 07/12/24 10:24 Completed B-Type Natriuretic Peptide Stat Lab 07/12/24 11:13 Completed CBC Stat Lab 07/12/24 11:13 Completed Comprehensive Metabolic Panel Stat Lab 07/12/24 11:13 Completed Drug Screen,Urine Stat Lab 07/12/24 11:27 Completed Magnesium Stat Lab 07/12/24 11:13 Completed Partial Thromboplastin Time Stat Lab 07/12/24 11:13 Completed Prothrombin Time with INR Stat Lab 07/12/24 11:13 Completed Troponin I Stat Lab 07/12/24 11:13 Completed Urinalysis Stat Lab 07/12/24 11:27 Completed Vital Signs Vital signs: Vital Signs Temperature 98.5 F 07/12/24 10:31 Pulse Rate 76 07/12/24 10:31 Respiratory Rate 18 07/12/24 10:31 Blood Pressure 164/85 H 07/12/24 10:31 Pulse Oximetry (%) 98 07/12/24 10:31 Oxygen Delivery Method Room Air 07/12/24 10:31 [facility] Patient data External records reviewed:: [facility] previous records Clinical information provided by:: patient Social determinants that could affect healthcare access:: none Patient has the following chronic illnesses:: None How is presenting disease/condition affected by chronic disease/condition?: u neffected by Evaluation data The following diagnostics were reviewed and interpreted by me:: lab results, radiology exam(s) and EKG tracing(s) Lab and/or radiology exams considered but not ordered:: EKG performed at 1020 oh shows ventricular rate of 73 KS interval 122 QRS of 113 QTc of 384 this is sinus rhythm. CBC shows no acute leukocytosis anemia thrombocytopenia CMP shows no acute electrolyte imbalances renal impairment transaminitis or T. bili elevation Troponin is negative BNP is negative Chest x-ray as interpreted by me as read by radiology as negative for any acute finding Interpretation Summary: I suspect this is all anxiety related to the patient's prior cardiac condition patient has an appointment with his PCP 3 days from now, at which time patient can follow-up. If there is a worsening of symptoms advised to return the emergency room for reevaluation. Medications Medications considered but not ordered:: None Medication administrations:: None Consultations Consultation(s) initiated? (list below): No Diagnosis Differential Diagnosis ED Complaint MDM: ACS WI pneumonia Most likely diagnosis given after review of the tests above:: Palpitations Admission Indicated Admission indicated?: not indicated Explain why admission is indicated or not indicated:: Stable for outpatient follow-up Admission Request Was there a request for admission?: No Disposition Plan Disposition Plan: Discharge Discharge Attestation Discharge Attestation: The patient and all family members were given an opportunity to ask questions and understood the discharge instructions. Discharge instructions specifically effects, indications for sooner follow up or return to the emergency department, and the expected course of current diagnosis. Patient condition: Stable Medical Decision Making Differential Diagnosis Differential Diagnosis: ACS WI pneumonia Lab Data 07/12/24 11:13 07/12/24 11:13 Labs: Lab Results 07/12/24 07/12/24 Range/Units 11:13 11:27 WBC 5.7 (3.8-10.6) Thou/mm3 RBC 5.57 (4.50-5.90) Miln/mm3 Hgb 16.1 H (13.5-16.0) g/dL Hct 47.2 (41.0-53.0) % MCV 85 (80-100) fL MCH 28.9 (25.0-35.0) pg MCHC 34.1 (31.0-37.0) g/dl RDW Std Deviation 38.0 (35.1-43.9) fL Plt Count 305 D (140-440) Thou/mm3 Neut % (Auto) 56 (37-80) % Lymph % (Auto) 33 (10-50) % [place] % (Auto) 8 (0-12) % Eos % (Auto) 1 (0-10) % Baso % (Auto) 1 (0-2.5) % Neut # (Auto) 3.2 (1.8-7.7) Thou/mm3 Lymph # (Auto) 1.9 (1.0-4.8) Thou/mm3 [place] # (Auto) 0.5 (0.0-0.8) Thou/mm3 Eos # (Auto) 0.1 (0.0-0.5) Thou/mm3 Baso # (Auto) 0.1 (0.0-0.2) Thou/mm3 Immature Gran # (Auto) 0.02 H (0.00-0.00) Thou/mm3 Absolute Nucleated RBC 0.00 (0.00-0.00) Thou/mm3 Immature Gran % 0 (0-0) % Nucleated RBC % 0 (0) /100 WBC PT 11.9 (9.0-12.2) Seconds INR 1.1 (0.9-1.3) APTT 30.9 (22.0-36.0) Seconds Sodium 139 (136-145) mMol/L Potassium 4.5 (3.4-5.1) mMol/L Chloride 102 (98-107) mMol/L Carbon Dioxide 29.7 (20.0-31.0) mMol/L Anion Gap 7 (7-16) BUN 15 (9-23) mg/dL Creatinine 1.1 (0.6-1.3) mg/dL Estim Creat Clear Calc 72.2 (>60) mL/min eGFR > 60 (60 - ) See Note BUN/Creatinine Ratio 14 (12-20) Ratio Glucose 85 (74-106) mg/dL Calculated Osmolality 277 (275-295) Calcium 9.5 (8.3-10.6) mg/dL Corrected Calcium 9.5 (8.5-10.1) mg/dL Magnesium 2.2 (1.6-2.6) mg/dL Total Bilirubin 0.6 (0.3-1.2) mg/dL AST 20 (0-34) U/L ALT 23 (10-49) U/L Alkaline Phosphatase 118 H (46-116) U/L Troponin I < 0.002 (0.0-0.045) ng/mL B-Natriuretic Peptide < 20 (0-100) pg/mL Total Protein 7.2 (5.7-8.2) gm/dL Albumin 4.6 (3.5-5.0) gm/dL Globulin 2.6 (2.3-3.5) gm/dL Albumin/Globulin Ratio 1.8 (1.2-2.2) Ur Collection Type Clean Catch Urine Color Lt-Yellow (Lt Yel-Yel) Urine Clarity Clear (Clear/Hazy) Urine pH 5.5 (5.0-7.0) Ur Specific [place] 1.023 (1.001-1.035) Urine Protein Negative (Neg - Trace) Urine Glucose (UA) Negative (Negative) Urine Ketones Negative (Negative) Urine Blood Negative (Negative) Urine Nitrite Negative (Negative) Urine Bilirubin Negative (Negative) Urine Urobilinogen (Auto) Negative (0.0-1.0) mg/dL Ur Leukocyte Esterase Negative (Negative) Urine RBC 1 (0-3) /hpf Urine WBC 1 (0-5) /hpf Ur Squamous Epith Cells < 1 (0-5) /hpf Urine Bacteria Rare (None) Urine Opiates Screen Negative (Negative) Urine Fentanyl Screen Negative (Negative) Ur Barbiturates Screen Negative (Negative) U Amphetamin/Meth Scrn Negative (Negative) U Benzodiazepines Scrn Negative (Negative) U Cocaine Metab Screen Negative (Negative) U Marijuana (THC) Screen Negative (Negative) Discharge Plan Plan Patient Disposition: HOME (Self Care) Prescriptions/Referrals Prescriptions/Med Rec: No Action flecainide 50 mg tablet 50 mg PO Q12H 30 Days Qty: 60 0RF Referrals: No Primary/Family,Physician [Primary Care Provider] - In 1 week Problem List Clinical Impression: Palpitations Patient/Caregiver Discharge Instructions Education Materials: ED Palpitations Additional Instructions: Follow-up with your doctor as you stated in 6 days if there is a worsening of symptoms return to the emergency room for reevaluation. Print Language: Vietnamese Stand Alone Forms: [facility] Award Info., Patient Portal Info Letter, Work/School Release PA/[employer] Supervising Physician PA/[employer] Supervising Physician: Andrew Dillon ENP
== END 2024-07-12 17:45 | disposition home or self-care (01) ==
PROVIDERS: Nurse Practitioner Family; Emergency Provider Emergency Medicine
DX: R00.2 Palpitations (principal)
CPT/HCPCS: 36415; 71046; 80053; 80307; 81001; 83735; 83880; 84484; 85025; 85610; 85730; 93005; 99283

== ENCOUNTER → 2025-02-19 | Outpatient (CLI) | payer BC, SELFPAY ==
--- NOTE | 2025-02-19 | XR_ITS ---
Examination: Abdomen AP single view Technique: AP portable supine abdomen, single view Exam date and time: February 19, 2025 1144 hours INDICATIONS: Difficulty urinating beginning one year ago. FINDINGS: Moderate to large amounts of stool throughout the colon No renal or ureteral calculi Distended urinary bladder is not depicted No free air IMPRESSION: Moderate to large amounts of stool throughout the colon
--- NOTE | 2025-02-19 11:10 | XR_ITS ---
Examination: Transabdominal prostate sonography TECHNIQUE: Grayscale sonographic images transabdominal of the prostate Date and time: February 19, 2025 1112 hours INDICATIONS: Difficulty urinating one year. FINDINGS: Prostate 3.3 x 3.7 x 3.7 cm volume 23 cc Multiple calcifications No prostate nodule Contracted urinary bladder IMPRESSION: Negative for prostatomegaly Negative for prostate nodules
[2025-02-19 13:00] LABS: Basophils # (Auto) 0.1 Thou/mm3 (0.0-0.2); Basophils % (Auto) 1 % (0-2.5); Eosinophils # (Auto) 0.1 Thou/mm3 (0.0-0.5); Eosinophils % (Auto) 2 % (0-10); Hematocrit 45.1 % (41.0-53.0); Hemoglobin 15.0 g/dL (13.5-16.0); Immature Granulocytes Auto 0.00 Thou/mm3 (0.00-0.00); Lymphocytes # (Auto) 1.8 Thou/mm3 (1.0-4.8); Lymphocytes % (Auto) 34 % (10-50); Mean Corpuscular HGB Conc 33.3 g/dl (31.0-37.0); Mean Corpuscular Hemoglobin 28.8 pg (25.0-35.0); Mean Corpuscular Volume 87 fL (80-100); Monocytes # (Auto) 0.5 Thou/mm3 (0.0-0.8); Monocytes % (Auto) 9 % (0-12); Neutrophils # (Auto) 2.9 Thou/mm3 (1.8-7.7); Neutrophils % (Auto) 54 % (37-80); Nucleated Red Blood Cell # 0.00 Thou/mm3 (0.00-0.00); Nucleated Red Blood Cell % 0 /100 WBC (0); Platelet Count 229 Thou/mm3 (140-440); RDW Standard Deviation 40.2 fL (35.1-43.9); Red Blood Count 5.21 Miln/mm3 (4.50-5.90); White Blood Count 5.3 Thou/mm3 (3.8-10.6)
[2025-02-19 13:12] LABS: Glucose Estimated Average 114 mg/dL (80-131); Hemoglobin A1C 5.6 % Hgb (4.8-6.0)
[2025-02-19 13:16] LABS: Alanine Aminotransferase 26 U/L (10-49); Albumin, Serum 4.3 gm/dL (3.5-5.0); Albumin/Globulin Ratio 1.9 (1.2-2.2); Alkaline Phosphatase 105 U/L (46-116); Anion Gap 8 (7-16); Aspartate Amino Transferase 21 U/L (0-34); BUN/Creatinine Ratio 19 Ratio (12-20); Bilirubin,Total 0.5 mg/dL (0.3-1.2); Blood Urea Nitrogen 17 mg/dL (9-23); Calcium 9.7 mg/dL (8.3-10.6); Calcium (Corrected) 9.7 mg/dL (8.5-10.1); Carbon Dioxide 29.5 mMol/L (20.0-31.0); Cardiac Risk Estimate 2.4 RATIO (4.0-6.7); Chloride 105 mMol/L (98-107); Cholesterol 154 mg/dL (132-200); Creatinine (Component) 0.9 mg/dL (0.6-1.3); Free T4 (Free Thyroxine) 1.22 ng/dL (0.89-1.76); Globulin 2.3 gm/dL (2.3-3.5); Glucose 106 mg/dL (74-106); HDL Cholesterol 65 mg/dL (40-60); LDL Cholesterol,Calculated 69 mg/dL (0-130); Osmolality,Calculated 284 (275-295); Potassium 4.1 mMol/L (3.4-5.1); Sodium 142 mMol/L (136-145); Thyroid Stimulating Hormone 0.91 uIU/mL (0.55-4.78); Total Protein 6.6 gm/dL (5.7-8.2); Triglycerides 102 mg/dL (30-150); eGFR > 60 See Note
[2025-02-21 13:48] LABS: PSA, Free 0.26 ng/mL; PSA, Total 1.2 ng/mL (< OR = 4.0)
== END | disposition home or self-care (01) ==
LOC: CDIM 10:57 → COPL 11:20
PROVIDERS: PCP Nurse Practitioner Family; Referring Provider Nurse Practitioner Family; Visit Provider Radiology Diagnostic Radiology
DX: N39.0 Urinary tract infection, site not specified (principal); K59.00 Constipation, unspecified; Z13.220 Encounter for screening for lipoid disorders; Z13.1 Encounter for screening for diabetes mellitus; Z13.29 Encounter for screening for other suspected endocrine disorder
CPT/HCPCS: 36415; 74018; 76873; 80053; 80061; 83036; 84153; 84154; 84439; 84443; 85025

== ENCOUNTER → 2025-04-23 | Outpatient (CLI) | payer BC, SELFPAY ==
--- NOTE | 2025-04-23 09:06 | XR_ITS ---
Examination: Abdomen AP single view Technique: AP portable supine abdomen, single view Exam date and time: April 23, 2025, 0927 hours, comparison February 19, 2025 INDICATION: Difficult no urinating 1 year FINDINGS: Moderate stool throughout the colon. No obstruction. Distended urinary bladder is not depicted. Intact osseous structures IMPRESSION: Nonobstructive bowel gas pattern
== END | disposition home or self-care (01) ==
LOC: CDIM 08:53
PROVIDERS: PCP Nurse Practitioner Family; Referring Provider Nurse Practitioner Family; Visit Provider Nurse Practitioner Family
DX: N32.89 Other specified disorders of bladder (principal)
CPT/HCPCS: 74018